=== PATIENT | male | born 1950 | race Two or more races ===

== ENCOUNTER 2016-10-19 19:23 | Emergency (ER) | payer OTHER, MEDICAID ==
[~2016-10-19] VITALS: Ht 175.3 cm; Wt 107.5 kg
[~2016-10-19 19:23] MED LIST: ASPI-498 OR; BUDE160A3 IN; GABA-497 PO; LEVA3NEB9 IN; LOR05T PO; MET10T PO; ONDA8TAB6 PO; TOPI50TA32 PO
[2016-10-19 20:35] LABS: Basophils # (auto) 0.1 uL; Basophils % (auto) 0.6 % (0.0-2.0); CONDITION Y; Eosinophils # (auto) 0.5 uL; Eosinophils % (auto) 5.2 % (0.0-7.0); Hematocrit 51.3 % (41.0-53.0); Hemoglobin 17.5 g/dL (13.5-17.5); Lymphocytes # (auto) 2.9 uL; Lymphocytes % (auto) 29.6 % (10.0-50.0); Mean Corpuscular Hgb Conc. 34.1 g/dL (32.0-36.0); Mean Corpuscular Volume 93.9 fL (80.0-100.0); Mean Platelet Volume 9.9 fL (7.4-10.4); Monocytes # (auto) 0.6 uL; Monocytes % (auto) 6.5 % (0.0-12.0); Neutrophils # (auto) 5.6 uL; Neutrophils % (auto) 58.1 % (37.0-80.0); Platelet Count (auto) 238 10^3/uL (140-450); White Blood Cell 9.6 10^3/uL (4.4-10.8)
[2016-10-19 20:44] LABS: INR 1.04 (0.9-1.15); Partial Thromboplastin Time 26.8 sec (22.64-33.71); Prothrombin Time 11.3 sec (9.37-12.3)
[2016-10-19 20:57] LABS: Anion Gap 8 (5-15); Aspartate Aminotransferase 28 U/L (15-37); BUN/Creatinine Ratio 10.9; Blood Urea Nitrogen 16 mg/dL (7-18); Calcium 8.5 mg/dL (8.5-10.1); Carbon Dioxide 22 mmol/L (21-32); Chloride 111 mmol/L (98-107); GFR African American 62 mL/min; GFR Non-African American 51 mL/min; Glucose 161 mg/dL (74-106); Magnesium 2.2 mg/dL (1.6-2.6); Potassium 3.8 mmol/L (3.5-5.1); Sodium 141 mmol/L (136-145)
[2016-10-19 21:02] LABS: Alkaline Phosphatase 54 U/L (45-117); Bilirubin, Total 0.7 mg/dL (0.2-1.0); Total Protein 7.5 g/dL (6.4-8.2)
[2016-10-19 21:06] LABS: B-Type Natriuretic Peptide 22.24 pg/mL (0-100)
[2016-10-19 21:18] LABS: Urine Bilirubin Negative (Negative); Urine Blood Negative /uL (Negative); Urine Color Yellow (Yellow); Urine Glucose Normal (Normal); Urine Ketone Negative (Negative); Urine Nitrite Negative (Negative); Urine RBC <1 /hpf (0 - 3); Urine Urobilinogen Normal (Negative)
[2016-10-19 21:19] LABS: Temperature: 22.5 C (20.0-25.0)
[2016-10-19] MEDS ORDERED: SODIUM CHLORIDE 0.9% 250 ML IV ONE (23:15)
[2016-10-19] MEDS ORDERED: MECLIZINE HCL 25 MG TAB PO ONE (23:15)
[2016-10-19] MEDS ORDERED: LORazepam 2MG/ML-1ML VIAL IV ONE (23:15)
[2016-10-19] MEDS ORDERED: ONDANSETRON HCL 4 MG/2 ML VIAL IV ONE (23:15)
[2016-10-19 23:46] VITALS: BP 110/70
== END 2016-10-20 00:39 | disposition home or self-care (01) ==
LOC: ER 19:45
DX: R10.9 Unspecified abdominal pain (principal); R11.0 Nausea; R20.0 Anesthesia of skin; J44.9 Chronic obstructive pulmonary disease, unspecified; E11.9 Type 2 diabetes mellitus without complications; E78.5 Hyperlipidemia, unspecified; Z90.49 Acquired absence of other specified parts of digestive tract; Z87.891 Personal history of nicotine dependence; Z98.890 Other specified postprocedural states
CPT/HCPCS: 36415; 70450; 71010; 74176; 80053; 80307; 81001; 83735; 83880; 84484; 85025; 85379; 85610; 85730; 93005; 96361; 96374; 96375; 99285; J2060; J2405; J7050; J8597

== ENCOUNTER 2016-12-04 17:28 | Emergency (ER) | payer OTHER, MEDICAID ==
[~2016-12-04] VITALS: Ht 175.3 cm; Wt 106.6 kg
[2016-12-04 18:19] LABS: Basophils # (auto) 0.1 uL; Basophils % (auto) 1.2 % (0.0-2.0); Eosinophils # (auto) 0.6 uL; Hematocrit 49.9 % (41.0-53.0); Hemoglobin 17.1 g/dL (13.5-17.5); Lymphocytes # (auto) 2.5 uL; Lymphocytes % (auto) 26.4 % (10.0-50.0); Mean Corpuscular Hemoglobin 32.8 pg (28.0-32.0); Mean Corpuscular Hgb Conc. 34.3 g/dL (32.0-36.0); Mean Corpuscular Volume 95.6 fL (80.0-100.0); Mean Platelet Volume 9.2 fL (6.9-10.8); Monocytes # (auto) 0.6 uL; Monocytes % (auto) 6.5 % (0.0-12.0); Neutrophils # (auto) 5.6 uL; Neutrophils % (auto) 59.9 % (37.0-80.0); Nucleated Red Blood Cells % 0.2 %; Platelet Count (auto) 217 10^3/uL (140-450); Red Cell Distribution Width 13.8 % (11.8-14.3); White Blood Cell 9.4 10^3/uL (4.4-10.8)
[2016-12-04 18:56] LABS: Alkaline Phosphatase 71 U/L (45-117); Anion Gap 7 (5-15); Aspartate Aminotransferase 39 U/L (15-37); Bilirubin, Total 0.7 mg/dL (0.2-1.0); Blood Urea Nitrogen 16 mg/dL (7-18); Calcium 8.2 mg/dL (8.5-10.1); Carbon Dioxide 26 mmol/L (21-32); Chloride 107 mmol/L (98-107); GFR African American 63 mL/min; GFR Non-African American 52 mL/min; Glucose 262 mg/dL (74-106); Magnesium 2.4 mg/dL (1.6-2.6); Potassium 3.7 mmol/L (3.5-5.1); Sodium 140 mmol/L (136-145); Total Protein 7.3 g/dL (6.4-8.2)
[2016-12-05] MEDS ORDERED: ONDANSETRON HCL 4 MG/2 ML VIAL IV ONE (02:15)
[2016-12-05] MEDS ORDERED: MORPHINE SULF INJ 2 MG/ML SYRINGE 1ML IV ONE (02:15)
[2016-12-05 02:35] VITALS: BP 142/73
[2016-12-05] MEDS ORDERED: LORazepam 0.5 MG TAB PO ONE (03:30)
[2016-12-05] MEDS ORDERED: HYDROmorphone HCL 2 MG/ML VL IV ONE (03:30)
== END 2016-12-05 05:27 | disposition home or self-care (01) ==
LOC: ER 17:30
DX: M54.42 Lumbago with sciatica, left side (principal); R07.9 Chest pain, unspecified; F41.9 Anxiety disorder, unspecified; E11.9 Type 2 diabetes mellitus without complications; J44.9 Chronic obstructive pulmonary disease, unspecified; E78.5 Hyperlipidemia, unspecified; Z87.891 Personal history of nicotine dependence; Z79.82 Long term (current) use of aspirin; Z88.6 Allergy status to analgesic agent
CPT/HCPCS: 36415; 71020; 72131; 73562; 80053; 82962; 83735; 84484; 85025; 93005; 96374; 96375; 99285; J1170; J2270; J2405

== ENCOUNTER 2018-08-20 02:13 | Emergency (ER) | payer OTHER, MEDICAID ==
[~2018-08-20] VITALS: Ht 170.2 cm; Wt 108.9 kg
[~2018-08-20 02:13] MED LIST changes: +ALPR0.5T PO; +ATOR80TA PO; +FENO1TAB42 PO; +FLUO-125 PO; -GABA-497 PO; +GABA300C10 PO; -LOR05T PO; +LORA-654 PO; +MAGN400T5 PO; +MECL-87 PO; +NAP500T PO; +ONDA-143 PO; -ONDA8TAB6 PO
[2018-08-20 02:54] LABS: Basophils # (auto) 0.1 uL; Basophils % (auto) 1.2 % (0.0-2.0); Eosinophils # (auto) 0.4 uL; Hematocrit 48.4 % (41.0-53.0); Hemoglobin 16.6 g/dL (13.5-17.5); Lymphocytes % (auto) 29.1 % (10.0-50.0); Mean Corpuscular Hemoglobin 32.9 pg (28.0-32.0); Mean Corpuscular Hgb Conc. 34.4 g/dL (32.0-36.0); Mean Corpuscular Volume 95.6 fL (80.0-100.0); Monocytes # (auto) 0.7 uL; Monocytes % (auto) 7.1 % (0.0-12.0); Neutrophils # (auto) 5.9 uL; Neutrophils % (auto) 58.6 % (37.0-80.0); Platelet Count (auto) 219 10^3/uL (140-450); Red Blood Cells 5.06 10^6/uL (4.5-5.90); Red Cell Distribution Width 13.9 % (11.8-14.3); White Blood Cell 10.2 10^3/uL (4.4-10.8)
[2018-08-20 03:15] LABS: Alanine Aminotransferase 56 U/L (16-61); Albumin 3.9 g/dL (3.4-5.0); Anion Gap 9 (5-15); Aspartate Aminotransferase 40 U/L (15-37); BUN/Creatinine Ratio 10.4; Blood Urea Nitrogen 17 mg/dL (7-18); Calcium 8.5 mg/dL (8.5-10.1); Carbon Dioxide 21 mmol/L (21-32); Chloride 112 mmol/L (98-107); GFR African American 54 mL/min; GFR Non-African American 45 mL/min; Glucose 138 mg/dL (74-106); Magnesium 2.2 mg/dL (1.6-2.6); Potassium 3.8 mmol/L (3.5-5.1); Sodium 142 mmol/L (136-145)
[2018-08-20 03:20] LABS: Alkaline Phosphatase 70 U/L (45-117); Bilirubin, Total 0.7 mg/dL (0.2-1.0); Total Protein 7.6 g/dL (6.4-8.2)
[2018-08-20] MEDS ORDERED: ONDANSETRON HCL 4 MG/2 ML VIAL IV ONE ×2 (05:00→11:00)
[2018-08-20] MEDS ORDERED: MORPHINE SULFATE 4 MG/ML SYR/VIAL IV ONE (05:00)
[2018-08-20] MEDS ORDERED: SODIUM CHLORIDE 0.9% 1,000 ML IV ONE (07:27)
[2018-08-20 08:39] LABS: INR 1.05 (0.9-1.15)
[2018-08-20 09:35] LABS: Urine Bacteria NONE SEEN /hpf (None Seen); Urine Blood Negative /uL (Negative); Urine Mucus FEW (None Seen); Urine Specific Gravity 1.028 (1.001-1.035); Urine WBC 1 /hpf (0 - 3)
[2018-08-20] MEDS ORDERED: MORPHINE SULF INJ 2 MG/ML SYRINGE 1ML IV ONE (11:00)
[2018-08-20 14:03] VITALS: BP 129/73
== END 2018-08-20 14:05 | disposition home or self-care (01) ==
LOC: EDUNIT# 02:13 → ER 02:13 → EDBD 02:13 → ER 14:05
DX: R07.9 Chest pain, unspecified (principal); I20.9 Angina pectoris, unspecified; E66.9 Obesity, unspecified; E11.9 Type 2 diabetes mellitus without complications; I11.0 Hypertensive heart disease with heart failure; I50.9 Heart failure, unspecified; J44.9 Chronic obstructive pulmonary disease, unspecified; E78.5 Hyperlipidemia, unspecified; I25.2 Old myocardial infarction; Z90.49 Acquired absence of other specified parts of digestive tract; Z68.37 Body mass index [BMI] 37.0-37.9, adult; Z87.891 Personal history of nicotine dependence; F12.10 Cannabis abuse, uncomplicated
CPT/HCPCS: 36415; 71045; 80053; 81001; 83735; 83880; 84443; 84484; 85025; 85379; 85610; 85730; 93005; 94761; 96374; 96375; 96376; 99284; J2270; J2405; J7030

== ENCOUNTER 2019-10-25 03:25 | Inpatient (IN) | payer OTHER, MEDICAID ==
[~2019-10-25] VITALS: Ht 172.7 cm; Wt 99.8 kg
[~2019-10-25 03:25] MED LIST changes: +FENO145T27 PO; -FENO1TAB42 PO; -LORA-654 PO; +LORA0.5T20 PO; +MAGN400T40 PO; -MAGN400T5 PO; -MECL-87 PO; +MECL25TA18 PO
[2019-10-25] MEDS ORDERED: ONDANSETRON HCL 4 MG/2 ML VIAL IV ONE (04:15)
[2019-10-25] MEDS: MORPHINE SULFATE 4 MG/ML SYR/VIAL IV PRN ×2 (04:53→11:11)
[2019-10-25 05:22] LABS: Basophils # (auto) 0.1 10 ^3/uL (0-0.2); Basophils % (auto) 1.1 % (0.0-2.0); Eosinophils # (auto) 0.2 10 ^3/uL (0-0.8); Eosinophils % (auto) 3.2 % (0.0-7.0); Hematocrit 45.7 % (41.0-53.0); Hemoglobin 15.4 g/dL (13.5-17.5); Lymphocytes # (auto) 1.5 10 ^3/uL (0.4-5.4); Lymphocytes % (auto) 21.6 % (10.0-50.0); Mean Corpuscular Hemoglobin 32.3 pg (28.0-32.0); Mean Corpuscular Hgb Conc. 33.6 g/dL (32.0-36.0); Mean Corpuscular Volume 96.3 fL (80.0-100.0); Monocytes # (auto) 0.4 10 ^3/uL (0-1.3); Monocytes % (auto) 6.5 % (0.0-12.0); Neutrophils # (auto) 4.7 10 ^3/uL (1.6-8.6); Neutrophils % (auto) 67.6 % (37.0-80.0); Nucleated Red Blood Cells % 0.1 %; Platelet Count (auto) 157 10^3/uL (140-450); Red Blood Cells 4.75 10^6/uL (4.5-5.90); Red Cell Distribution Width 14.7 % (11.8-14.3); White Blood Cell 6.9 10^3/uL (4.4-10.8)
[2019-10-25 05:40] LABS: Albumin 3.8 g/dL (3.4-5.0); Anion Gap 4 (5-15); Blood Urea Nitrogen 11 mg/dL (7-18); Calcium 8.6 mg/dL (8.5-10.1); Carbon Dioxide 23 mmol/L (21-32); Chloride 116 mmol/L (98-107); Glucose 127 mg/dL (74-106); Potassium 3.9 mmol/L (3.5-5.1); Sodium 143 mmol/L (136-145)
[2019-10-25 05:47] LABS: Alanine Aminotransferase 38 U/L (16-61); Alkaline Phosphatase 52 U/L (45-117); Aspartate Aminotransferase 31 U/L (15-37); BUN/Creatinine Ratio 8.2; Bilirubin, Total 1.1 mg/dL (0.2-1.0); GFR African American 68 mL/min; GFR Non-African American 57 mL/min; Total Protein 6.9 g/dL (6.4-8.2)
[2019-10-25 05:56] LABS: INR 1.09 (0.9-1.15); Partial Thromboplastin Time 27.6 sec (23.0-31.2)
[2019-10-25] MEDS ORDERED: ALPRAZolam 0.25 MG TAB PO ONE (08:45)
[2019-10-25] MEDS ORDERED: NITROGLYCERIN 0.4 MG SL TAB SL ONE (08:45)
[2019-10-25] MEDS ORDERED: ASPirin 325 MG TAB PO ONE (10:30)
[2019-10-25] MEDS ORDERED: SODIUM CHLORIDE 0.9% 1,000 ML IV ONE (10:30)
[2019-10-25] MEDS ORDERED: NITROGLYCERIN 0.4 MG SL TAB SL PRN (10:45)
[2019-10-25] MEDS ORDERED: ASPirin 81 mg TAB PO ONE (10:45)
[2019-10-25] MEDS ORDERED: MORPHINE SULF INJ 2 MG/ML SYRINGE 1ML IV PRN (10:45)
[2019-10-25] MEDS ORDERED: LIDOCAINE 2%HCL (LOCAL ANESTH.) INJ 20ML MDV ONE (14:52)
[2019-10-25] MEDS ORDERED: IODIXANOL 320MG/ML 100ML BTL IV ONE (14:52)
[2019-10-25] MEDS ORDERED: CLOP75TA41 PO (15:02)
[2019-10-25] MEDS ORDERED: TOPI100T68 PO (15:02)
[2019-10-25] MEDS ORDERED: FLUO-125 PO (15:02)
[2019-10-25] MEDS ORDERED: FENO160T8 PO (15:02)
[2019-10-25] MEDS ORDERED: METF-370 PO (15:02)
[2019-10-25] MEDS ORDERED: VERAPAMIL 2.5MG/ML INJ 2ML VIAL IV ONE (15:14)
[2019-10-25] MEDS ORDERED: ANGIOMAX 250 MG VIAL IV ONE (15:14)
[2019-10-25] MEDS ORDERED: fentaNYL CITRATE 100 MCG/2 ML VL ONE (15:15)
[2019-10-25] MEDS ORDERED: MIDAZOLAM HCL 1MG/1ML-2 ML VIAL ONE (15:15)
[2019-10-25] MEDS ORDERED: HEPARIN SODIUM (PORCINE) 5000 UNITS/ML 1ML VIAL ONE (16:20)
[2019-10-25 19:03] VITALS: BP 119/63
--- NOTE | 2019-10-25 21:05 | NUR ---
Patient Discharged Dis[facility] the [id number]. Prepared the patient for discharge, printed all discharge paperwork, and then reviewed it with the patient. Signature form was missing so had the patient sign the last page of the summary. He denied any questions. The patient was reluctant to discharge, stating he wasn't sure he was ready. i explained that all test on his heart were negative to include the Cardiac Cath performed earlier today. The patient requested medications for anxiety prior to being discharged. I explained that he would need to get a prescription from his primary care provider as he was already discharged. He also requested medications for pain. I again explained since he was discharged most of his medications were discontinued. Escorted the patient to the main entrance via wheel chair where his daughter Lindy picked him up.
[2019-10-25] MEDS ORDERED: SODIUM CHLOR 0.9% PF (SALINE LOCK) 10ML VIAL/SYR IV SCH (22:00)
[2019-10-26] MEDS ORDERED: ASPirin 81 mg TAB PO SCH (10:00)
== END 2019-10-25 20:45 | disposition home or self-care (01) | DRG 287 ==
LOC: ER 03:25 → EDBD 03:25 → TELE 03:26 → TELE-WESTW 14:40
PROVIDERS: ADMIT Internal Medicine; ATTEND Internal Medicine
PROC: 4A023N7 Measurement of Cardiac Sampling and Pressure, Left Heart, Percutaneous Approach (ICD-10-PCS; principal; 2019-10-25)
PROC: B2111ZZ Fluoroscopy of Multiple Coronary Arteries using Low Osmolar Contrast (ICD-10-PCS; 2019-10-25)
PROC: 4A033BC Measurement of Arterial Pressure, Coronary, Percutaneous Approach (ICD-10-PCS; 2019-10-25)
DX: R07.9 Chest pain, unspecified (principal); I25.110 Atherosclerotic heart disease of native coronary artery with unstable angina pectoris; E11.9 Type 2 diabetes mellitus without complications; E66.9 Obesity, unspecified; E78.5 Hyperlipidemia, unspecified; I11.0 Hypertensive heart disease with heart failure; I25.2 Old myocardial infarction; I50.9 Heart failure, unspecified; J44.9 Chronic obstructive pulmonary disease, unspecified; Z83.3 Family history of diabetes mellitus; Z87.891 Personal history of nicotine dependence; Z79.4 Long term (current) use of insulin
CPT/HCPCS: 36415; 71045; 80053; 83880; 84484; 85025; 85379; 85610; 85730; 93005; 93306; 93458; 96361; 96374; 96375; 99152; G0378; J2250; J2405; Q9967

== ENCOUNTER → 2020-04-21 | Outpatient (CLI) | payer OTHER ==
[~2020-04-21] MED LIST changes: +CLOP75TA70 PO; -FENO145T27 PO; +FENO160T8 PO; +METF-370 PO; +TOPI100T68 PO; -TOPI50TA32 PO
[2020-04-21 08:24] LABS: Basophils # (auto) 0.1 10 ^3/uL (0-0.2); Basophils % (auto) 1.3 % (0.0-2.0); Eosinophils # (auto) 0.2 10 ^3/uL (0-0.8); Eosinophils % (auto) 4.6 % (0.0-7.0); Hemoglobin 15.7 g/dL (13.5-17.5); Lymphocytes # (auto) 1.3 10 ^3/uL (0.4-5.4); Lymphocytes % (auto) 23.9 % (10.0-50.0); Mean Corpuscular Hemoglobin 32.4 pg (28.0-32.0); Mean Corpuscular Hgb Conc. 34.2 g/dL (32.0-36.0); Mean Corpuscular Volume 94.9 fL (80.0-100.0); Monocytes # (auto) 0.4 10 ^3/uL (0-1.3); Monocytes % (auto) 7.7 % (0.0-12.0); Neutrophils # (auto) 3.4 10 ^3/uL (1.6-8.6); Neutrophils % (auto) 62.5 % (37.0-80.0); Platelet Count (auto) 146 10^3/uL (140-450); Red Blood Cells 4.85 10^6/uL (4.5-5.90); White Blood Cell 5.4 10^3/uL (4.4-10.8)
[2020-04-21 09:01] LABS: Albumin 3.5 g/dL (3.4-5.0); Calcium 9.8 mg/dL (8.5-10.1); Potassium 4.5 mmol/L (3.5-5.1)
[2020-04-21 09:07] LABS: BUN/Creatinine Ratio 7.7; Bilirubin, Total 1.4 mg/dL (0.2-1.0); Total Protein 7.6 g/dL (6.4-8.2)
[2020-04-21 09:13] LABS: Prostate Specific Antigen 0.3 ng/mL (0.0-4.0)
[2020-04-21 09:37] LABS: Hepatitis B Surface Antibody Negative
[2020-04-21 10:03] LABS: Hepatitis A Total Antibody Positive
[2020-04-21 10:35] LABS: Hepatitis C Antibody Negative (Negative)
[2020-04-21 10:36] LABS: Hepatitis B Core Total AB Negative; Hepatitis B Surface Antigen Negative (Negative)
[2020-04-24 14:03] LABS: Urine Bacteria NONE SEEN /hpf (None Seen); Urine Blood Negative /uL (Negative); Urine Specific Gravity 1.031 (1.001-1.035); Urine WBC 2 /hpf (0 - 3)
== END | disposition home or self-care (01) ==
LOC: LAB 08:06
PROVIDERS: ATTEND Internal Medicine
DX: I12.9 Hypertensive chronic kidney disease with stage 1 through stage 4 chronic kidney disease, or unspecified chronic kidney disease (principal); E11.22 Type 2 diabetes mellitus with diabetic chronic kidney disease; N18.2 Chronic kidney disease, stage 2 (mild)
CPT/HCPCS: 36415; 80053; 80061; 81001; 82043; 82274; 82306; 82607; 83036; 84153; 84443; 85025; 86704; 86706; 86708; 86803; 87340

== ENCOUNTER → 2020-05-06 | Outpatient (CLI) | payer OTHER ==
[2020-05-06 09:04] LABS: BUN/Creatinine Ratio 12.2; Calcium 9.5 mg/dL (8.5-10.1); Potassium 4.1 mmol/L (3.5-5.1)
== END | disposition home or self-care (01) ==
LOC: LAB 08:28
PROVIDERS: ATTEND Internal Medicine
DX: E11.22 Type 2 diabetes mellitus with diabetic chronic kidney disease (principal); N18.2 Chronic kidney disease, stage 2 (mild)
CPT/HCPCS: 36415; 80048; 82043

== ENCOUNTER → 2020-05-16 | Outpatient (CLI) | payer OTHER | END | disposition home or self-care (01) | LOC: XYW 08:07 | PROVIDERS: ATTEND Internal Medicine | DX: I08.2 Rheumatic disorders of both aortic and tricuspid valves (principal); R00.1 Bradycardia, unspecified; I70.0 Atherosclerosis of aorta | CPT/HCPCS: 93306 ==

== ENCOUNTER → 2020-05-26 | Outpatient (CLI) | payer OTHER, MEDICAID | END | disposition home or self-care (01) | LOC: LAB 07:37 | PROVIDERS: ATTEND Internal Medicine | DX: Z01.812 Encounter for preprocedural laboratory examination (principal) | CPT/HCPCS: 36415; 82565; 84520 ==

== ENCOUNTER → 2020-10-08 | Outpatient (CLI) | payer OTHER, MEDICAID ==
[~2020-10-08] VITALS: Ht 172.7 cm; Wt 85.3 kg
[~2020-10-08] MED LIST changes: +ADENOSINE 72 MG in GIVE UN-DILUTED 0 ML IV ONE
== END | disposition home or self-care (01) ==
LOC: XY 08:53
PROVIDERS: ATTEND Internal Medicine
DX: R07.89 Other chest pain (principal); I50.22 Chronic systolic (congestive) heart failure; I25.5 Ischemic cardiomyopathy; E11.65 Type 2 diabetes mellitus with hyperglycemia; Z72.0 Tobacco use
CPT/HCPCS: 78452; 93017; A9500; J0153

== ENCOUNTER 2020-11-26 07:01 | Inpatient (IN) | payer OTHER, MEDICAID ==
[2020-11-24 11:49] LABS: Basophils # (auto) 0.1 10 ^3/uL (0-0.2); Eosinophils # (auto) 0.2 10 ^3/uL (0-0.8); Eosinophils % (auto) 2.5 % (0.0-7.0); Hematocrit 48.7 % (41.0-53.0); Hemoglobin 15.7 g/dL (13.5-17.5); Lymphocytes # (auto) 2.6 10 ^3/uL (0.4-5.4); Lymphocytes % (auto) 29.7 % (10.0-50.0); Mean Corpuscular Hemoglobin 31.6 pg (28.0-32.0); Mean Corpuscular Hgb Conc. 32.3 g/dL (32.0-36.0); Mean Corpuscular Volume 97.7 fL (80.0-100.0); Monocytes # (auto) 0.7 10 ^3/uL (0-1.3); Monocytes % (auto) 8.1 % (0.0-12.0); Neutrophils # (auto) 5.1 10 ^3/uL (1.6-8.6); Neutrophils % (auto) 58.7 % (37.0-80.0); Nucleated Red Blood Cells % 0.1 %; Red Blood Cells 4.99 10^6/uL (4.5-5.90); Red Cell Distribution Width 14.8 % (11.8-14.3); White Blood Cell 8.6 10^3/uL (4.4-10.8)
[2020-11-24 12:01] LABS: Urine Bacteria NONE SEEN /hpf (None Seen); Urine Blood Negative /uL (Negative); Urine Hyaline Cast FEW /lpf (0 - 2); Urine Specific Gravity 1.025 (1.001-1.035); Urine WBC 3 /hpf (0 - 3)
[2020-11-24 12:12] LABS: Potassium 3.9 mmol/L (3.5-5.1)
[2020-11-24 12:24] LABS: Albumin 3.9 g/dL (3.4-5.0); BUN/Creatinine Ratio 10.7; Bilirubin, Total 1.4 mg/dL (0.2-1.0); Calcium 9.6 mg/dL (8.5-10.1); Total Protein 7.6 g/dL (6.4-8.2)
[~2020-11-26] VITALS: Ht 172.7 cm; Wt 82.1 kg
[~2020-11-26 07:01] MED LIST changes: -ADENOSINE 72 MG in GIVE UN-DILUTED 0 ML IV ONE; -BUDE160A3 IN; +CHOL20007 PO; +CICL8SOL3 EX; +ECON1CRE6 EX; +FLUT1AER7 IN; +FLUT250M2 IN; +HYDR-3682 PO; +ISOS10TA45 PO; +LEVAAER IN; -LORA0.5T20 PO; -MECL25TA18 PO; -MET10T PO; -ONDA-143 PO
[2020-11-26] MEDS ORDERED: ceFAZolin 1GM/50ML 100 ML IV ONE (08:54)
[2020-11-26] MEDS ORDERED: SUCCINYLCHOLINE CHLORIDE 20 MG/ML 10ML VIAL IV ONE (09:13)
[2020-11-26] MEDS ORDERED: MIDAZOLAM HCL 2MG/2ML 2ml VIAL (1mg/ml) ONE (09:17)
[2020-11-26] MEDS ORDERED: fentaNYL CITRATE 5 ML ONE (09:17)
[2020-11-26] MEDS ORDERED: PROPOFOL 10 MG/ML 20 ML IV ONE (09:18)
[2020-11-26] MEDS ORDERED: ONDANSETRON HCL 4 MG/2 ML VIAL ONE (09:18)
[2020-11-26] MEDS ORDERED: ceFAZolin 1GM VL ONE (10:07)
[2020-11-26] MEDS ORDERED: ONDANSETRON HCL 4 MG/2 ML VIAL IV PRN ×2 (11:00→11:30)
[2020-11-26] MEDS ORDERED: GLYCOPYRROLATE 0.2 MG/ML 1ML VIAL ONE (11:14)
[2020-11-26] MEDS ORDERED: NEOSTIGMINE 1 MG/ML INJ (10mg/10ML VIAL) ONE (11:14)
[2020-11-26] MEDS: HYDROmorphone HCL 2 MG/ML VL IV PRN ×4 (11:53→12:27)
[2020-11-26] MEDS ORDERED: MORPHINE SULFATE INJECTION 2 MG/ML SYRG IV PRN (12:00)
[2020-11-26] MEDS ORDERED: DEXTROSE (50%) 50ML SYRG IV PRN (12:00)
[2020-11-26] MEDS ORDERED: NITROGLYCERIN 0.4 MG SL TAB SL PRN (12:00)
[2020-11-26] MEDS ORDERED: ALBUTEROL SULF 2.5 MG/0.5ML(0.5%) NEB SOLN NEB PRN (12:00)
[2020-11-26] MEDS ORDERED: IPRATROPIUM BROM 0.5 MG/2.5ML INH SOL NEB PRN (12:00)
[2020-11-26] MEDS: D5W/SOD CHL 0.45%/KCL 40MEQ 1,000 ML IV SCH ×2 (12:35→17:54)
[2020-11-26] MEDS: KETOROLAC TROMETH 30 MG/ML 1ML VIAL IV PRN (13:07)
[2020-11-26] MEDS ORDERED: ceFAZolin 2 GM in D5W 5% 100 ML IV SCH (14:00)
[2020-11-26] MEDS: MORPHINE SULFATE INJECTION 2 MG/ML SYRG IV PRN ×2 (15:19→20:05)
[2020-11-26 17:00] VITALS: BP 94/58
[2020-11-26] MEDS: ACCU-CHEK COMFORT CURVE STRIP VI SCH ×2 (17:00→21:11)
[2020-11-26] MEDS: InsuLIN REG 1unit/0.01ml Soln (100units/ml) SC SCH ×2 (17:00→21:11)
[2020-11-26] MEDS: ceFAZolin 2 GM in D5W 5% 100 ML IV SCH (17:53)
[2020-11-26 18:35] VITALS: BP 94/58
[2020-11-26] MEDS: BUDESONIDE (INHALATION) 0.5 MG/2 ML NEB NEB SCH (18:35)
[2020-11-26 22:00] VITALS: BP 91/55
[2020-11-27] MEDS: ceFAZolin 2 GM in D5W 5% 100 ML IV SCH ×4 (00:18→23:14)
[2020-11-27] MEDS: KETOROLAC TROMETH 30 MG/ML 1ML VIAL IV PRN ×4 (00:32→20:30)
[2020-11-27] MEDS: D5W/SOD CHL 0.45%/KCL 40MEQ 1,000 ML IV SCH ×2 (02:35→13:00)
[2020-11-27 05:00] VITALS: BP 94/56
[2020-11-27] MEDS ORDERED: INFLUENZA QUAD 2020-2021 0.5 ML SYRG IM ONE (05:15)
[2020-11-27] MEDS: BUDESONIDE (INHALATION) 0.5 MG/2 ML NEB NEB SCH ×3 (06:14→22:00)
[2020-11-27] MEDS: ACCU-CHEK COMFORT CURVE STRIP VI SCH ×4 (06:23→20:30)
[2020-11-27] MEDS: InsuLIN REG 1unit/0.01ml Soln (100units/ml) SC SCH ×4 (06:24→20:33)
[2020-11-27] MEDS: LORazepam 2MG/ML-1ML VIAL IV PRN ×2 (07:45→20:30)
[2020-11-27 09:03] VITALS: BP 110/65
[2020-11-27] MEDS: PANTOPRAZOLE 40 MG/10 ML VIAL INJ IV SCH (09:56)
[2020-11-27 10:35] LABS: Basophils # (auto) 0 10 ^3/uL (0-0.2); Basophils % (auto) 0.6 % (0.0-2.0); Eosinophils # (auto) 0.2 10 ^3/uL (0-0.8); Eosinophils % (auto) 2.1 % (0.0-7.0); Hematocrit 35.7 % (41.0-53.0); Lymphocytes # (auto) 1.3 10 ^3/uL (0.4-5.4); Lymphocytes % (auto) 16.8 % (10.0-50.0); Mean Corpuscular Hemoglobin 33.1 pg (28.0-32.0); Mean Corpuscular Hgb Conc. 33.6 g/dL (32.0-36.0); Mean Corpuscular Volume 98.4 fL (80.0-100.0); Monocytes # (auto) 0.7 10 ^3/uL (0-1.3); Monocytes % (auto) 9.6 % (0.0-12.0); Neutrophils # (auto) 5.4 10 ^3/uL (1.6-8.6); Neutrophils % (auto) 70.9 % (37.0-80.0); Nucleated Red Blood Cells % 0.1 %; Red Blood Cells 3.63 10^6/uL (4.5-5.90); Red Cell Distribution Width 14.7 % (11.8-14.3); White Blood Cell 7.7 10^3/uL (4.4-10.8)
[2020-11-27 10:45] LABS: Albumin 2.8 g/dL (3.4-5.0); Calcium 8.1 mg/dL (8.5-10.1); Magnesium 2.3 mg/dL (1.6-2.6); Potassium 4.2 mmol/L (3.5-5.1)
[2020-11-27 10:49] LABS: BUN/Creatinine Ratio 7.9; Bilirubin, Total 1.1 mg/dL (0.2-1.0); Total Protein 5.4 g/dL (6.4-8.2)
[2020-11-27 13:00] VITALS: BP 94/49
[2020-11-27 17:00] VITALS: BP 93/46
[2020-11-27 21:44] VITALS: BP 103/53
[2020-11-28] MEDS: D5W/SOD CHL 0.45%/KCL 40MEQ 1,000 ML IV SCH ×4 (04:21→21:24)
[2020-11-28] MEDS: KETOROLAC TROMETH 30 MG/ML 1ML VIAL IV PRN ×3 (04:39→21:23)
[2020-11-28 05:43] VITALS: BP 108/60
[2020-11-28] MEDS: InsuLIN REG 1unit/0.01ml Soln (100units/ml) SC SCH ×4 (06:07→21:27)
[2020-11-28] MEDS: ACCU-CHEK COMFORT CURVE STRIP VI SCH ×4 (06:07→21:27)
[2020-11-28] MEDS: LORazepam 2MG/ML-1ML VIAL IV PRN ×2 (07:15→17:30)
[2020-11-28] MEDS: ceFAZolin 2 GM in D5W 5% 100 ML IV SCH ×3 (08:30→23:43)
[2020-11-28 08:35] VITALS: BP 107/61
[2020-11-28] MEDS: BUDESONIDE (INHALATION) 0.5 MG/2 ML NEB NEB SCH ×2 (10:00→19:16)
[2020-11-28] MEDS: PANTOPRAZOLE 40 MG/10 ML VIAL INJ IV SCH (10:21)
[2020-11-28 13:00] VITALS: BP 126/63
[2020-11-28 16:40] VITALS: BP 101/57
[2020-11-28 22:00] VITALS: BP 109/62
[2020-11-29 05:00] VITALS: BP 107/60
[2020-11-29 05:22] LABS: Basophils # (auto) 0 10 ^3/uL (0-0.2); Eosinophils # (auto) 0.3 10 ^3/uL (0-0.8); Hematocrit 30.6 % (41.0-53.0); Hemoglobin 10.3 g/dL (13.5-17.5); Lymphocytes % (auto) 19.7 % (10.0-50.0); Mean Corpuscular Hemoglobin 32.5 pg (28.0-32.0); Mean Corpuscular Hgb Conc. 33.6 g/dL (32.0-36.0); Mean Corpuscular Volume 96.7 fL (80.0-100.0); Monocytes # (auto) 0.4 10 ^3/uL (0-1.3); Monocytes % (auto) 7.8 % (0.0-12.0); Neutrophils # (auto) 3.4 10 ^3/uL (1.6-8.6); Neutrophils % (auto) 66.5 % (37.0-80.0); Nucleated Red Blood Cells % 0.1 %; Red Blood Cells 3.17 10^6/uL (4.5-5.90)
[2020-11-29 05:37] LABS: Calcium 8.3 mg/dL (8.5-10.1); Potassium 4.7 mmol/L (3.5-5.1)
[2020-11-29 05:39] LABS: BUN/Creatinine Ratio 7.6
[2020-11-29] MEDS: KETOROLAC TROMETH 30 MG/ML 1ML VIAL IV PRN ×2 (05:47→13:33)
[2020-11-29] MEDS: LORazepam 2MG/ML-1ML VIAL IV PRN (05:47)
[2020-11-29] MEDS: InsuLIN REG 1unit/0.01ml Soln (100units/ml) SC SCH ×2 (05:58→11:30)
[2020-11-29] MEDS: ACCU-CHEK COMFORT CURVE STRIP VI SCH ×2 (05:58→11:37)
[2020-11-29] MEDS: D5W/SOD CHL 0.45%/KCL 40MEQ 1,000 ML IV SCH (05:59)
[2020-11-29] MEDS: BUDESONIDE (INHALATION) 0.5 MG/2 ML NEB NEB SCH ×2 (06:38→06:42)
[2020-11-29] MEDS: ceFAZolin 2 GM in D5W 5% 100 ML IV SCH (08:02)
[2020-11-29] MEDS: PANTOPRAZOLE 40 MG/10 ML VIAL INJ IV SCH (08:03)
[2020-11-29 08:57] VITALS: BP 102/60
[2020-11-29 12:38] VITALS: BP 108/61
== END 2020-11-29 13:56 | disposition home or self-care (01) | DRG 355 ==
LOC: SUR 07:01 → TELE 11:58 → TELE-CENTR 14:11 → CENTRAL 11-27 12:00
PROVIDERS: ADMIT Nurse Practitioner Acute Care; ATTEND Internal Medicine
PROC: 0WUF0JZ Supplement Abdominal Wall with Synthetic Substitute, Open Approach (ICD-10-PCS; principal; 2020-11-26 09:14)
DX: K43.2 Incisional hernia without obstruction or gangrene (principal); E11.9 Type 2 diabetes mellitus without complications; J44.9 Chronic obstructive pulmonary disease, unspecified; I25.10 Atherosclerotic heart disease of native coronary artery without angina pectoris; I10 Essential (primary) hypertension; K66.0 Peritoneal adhesions (postprocedural) (postinfection); E78.5 Hyperlipidemia, unspecified; Z20.822 Contact with and (suspected) exposure to COVID-19; Z79.02 Long term (current) use of antithrombotics/antiplatelets; Z79.84 Long term (current) use of oral hypoglycemic drugs; Z79.899 Other long term (current) drug therapy; Z83.3 Family history of diabetes mellitus; Z90.49 Acquired absence of other specified parts of digestive tract; Z88.1 Allergy status to other antibiotic agents; Z88.5 Allergy status to narcotic agent
CPT/HCPCS: 36415; 80048; 80053; 81001; 82962; 83036; 83735; 85025; 86850; 86900; 86901; 88302; 94640; C9113; G0378; J0330; J0690; J1815; J1885; J2250; J2405; J2704; J7060

== ENCOUNTER → 2021-03-19 | Outpatient (CLI) | payer OTHER | END | disposition home or self-care (01) | LOC: XYW 12:34 | PROVIDERS: ATTEND Internal Medicine | DX: I07.1 Rheumatic tricuspid insufficiency (principal); I35.0 Nonrheumatic aortic (valve) stenosis; I05.0 Rheumatic mitral stenosis | CPT/HCPCS: 93306 ==

== ENCOUNTER → 2021-05-01 | Outpatient (CLI) | payer OTHER ==
[2021-05-01 10:52] LABS: Albumin 3.4 g/dL (3.4-5.0); Calcium 9.2 mg/dL (8.5-10.1); Potassium 3.7 mmol/L (3.5-5.1)
[2021-05-01 10:57] LABS: BUN/Creatinine Ratio 15.4
[2021-05-01 11:04] LABS: Basophils # (auto) 0.1 10 ^3/uL (0-0.2); Eosinophils # (auto) 0.2 10 ^3/uL (0-0.8); Eosinophils % (auto) 2.5 % (0.0-7.0); Hematocrit 43.4 % (41.0-53.0); Hemoglobin 14.8 g/dL (13.5-17.5); Lymphocytes % (auto) 28.6 % (10.0-50.0); Mean Corpuscular Hemoglobin 32.5 pg (28.0-32.0); Mean Corpuscular Hgb Conc. 34.1 g/dL (32.0-36.0); Mean Corpuscular Volume 95.1 fL (80.0-100.0); Monocytes # (auto) 0.5 10 ^3/uL (0-1.3); Monocytes % (auto) 7.6 % (0.0-12.0); Neutrophils # (auto) 4.2 10 ^3/uL (1.6-8.6); Neutrophils % (auto) 60.3 % (37.0-80.0); Red Blood Cells 4.56 10^6/uL (4.5-5.90); Red Cell Distribution Width 17.2 % (11.8-14.3); White Blood Cell 6.9 10^3/uL (4.4-10.8)
== END | disposition home or self-care (01) ==
LOC: LAB 08:15
PROVIDERS: ATTEND Student in an Organized Health Care Education/Training Program
DX: E11.42 Type 2 diabetes mellitus with diabetic polyneuropathy (principal); I10 Essential (primary) hypertension
CPT/HCPCS: 36415; 80053; 80061; 82306; 83036; 85025

== ENCOUNTER → 2021-11-12 | Outpatient (CLI) | payer OTHER, MEDICAID ==
[2021-11-12 09:00] LABS: Basophils # (auto) 0.1 10 ^3/uL (0-0.2); Basophils % (auto) 1.2 % (0.0-2.0); Eosinophils # (auto) 0.1 10 ^3/uL (0-0.8); Eosinophils % (auto) 3.3 % (0.0-7.0); Hematocrit 39.3 % (41.0-53.0); Lymphocytes # (auto) 0.9 10 ^3/uL (0.4-5.4); Lymphocytes % (auto) 20.2 % (10.0-50.0); Mean Corpuscular Hemoglobin 32.3 pg (28.0-32.0); Mean Corpuscular Volume 97.7 fL (80.0-100.0); Monocytes # (auto) 0.3 10 ^3/uL (0-1.3); Monocytes % (auto) 7.6 % (0.0-12.0); Neutrophils # (auto) 3.1 10 ^3/uL (1.6-8.6); Neutrophils % (auto) 67.7 % (37.0-80.0); Nucleated Red Blood Cells % 0.1 %; Red Blood Cells 4.02 10^6/uL (4.5-5.90); Red Cell Distribution Width 17.5 % (11.8-14.3); White Blood Cell 4.5 10^3/uL (4.4-10.8)
[2021-11-12 09:42] LABS: Albumin 2.8 g/dL (3.4-5.0); Potassium 3.8 mmol/L (3.5-5.1)
[2021-11-12 09:50] LABS: BUN/Creatinine Ratio 11.9; Bilirubin, Total 4.6 mg/dL (0.2-1.0); Calcium 8.6 mg/dL (8.5-10.1)
== END | disposition home or self-care (01) ==
LOC: LAB 08:31
PROVIDERS: ATTEND Student in an Organized Health Care Education/Training Program
DX: E11.51 Type 2 diabetes mellitus with diabetic peripheral angiopathy without gangrene (principal); R79.89 Other specified abnormal findings of blood chemistry; E78.5 Hyperlipidemia, unspecified
CPT/HCPCS: 36415; 80053; 80061; 82043; 82274; 83036; 85025

== ENCOUNTER → 2021-12-02 | Outpatient (CLI) | payer OTHER, MEDICAID ==
[2021-12-02 09:09] LABS: Albumin 2.6 g/dL (3.4-5.0); Calcium 8.2 mg/dL (8.5-10.1); Total Protein 5.4 g/dL (6.4-8.2)
== END | disposition home or self-care (01) ==
LOC: LAB 08:03
PROVIDERS: ATTEND Student in an Organized Health Care Education/Training Program
DX: Z01.812 Encounter for preprocedural laboratory examination (principal); R79.89 Other specified abnormal findings of blood chemistry; R14.0 Abdominal distension (gaseous)
CPT/HCPCS: 36415; 80053

== ENCOUNTER 2021-12-14 11:49 | Inpatient (IN) | payer OTHER, MEDICAID ==
[~2021-12-14] VITALS: Ht 175.3 cm; Wt 80.0 kg
[2021-12-14 13:56] LABS: Urine Bacteria FEW /hpf (None Seen); Urine Blood Negative /uL (Negative); Urine Specific Gravity 1.007 (1.001-1.035); Urine WBC 1 /hpf (0 - 3)
[2021-12-14 14:01] LABS: Basophils # (auto) 0.1 10 ^3/uL (0-0.2); Basophils % (auto) 1.9 % (0.0-2.0); Eosinophils # (auto) 0.2 10 ^3/uL (0-0.8); Eosinophils % (auto) 4.2 % (0.0-7.0); Hematocrit 39.3 % (41.0-53.0); Hemoglobin 13.1 g/dL (13.5-17.5); Lymphocytes # (auto) 1.2 10 ^3/uL (0.4-5.4); Lymphocytes % (auto) 24.9 % (10.0-50.0); Mean Corpuscular Hemoglobin 33.6 pg (28.0-32.0); Mean Corpuscular Hgb Conc. 33.2 g/dL (32.0-36.0); Mean Corpuscular Volume 101.3 fL (80.0-100.0); Monocytes # (auto) 0.3 10 ^3/uL (0-1.3); Monocytes % (auto) 6.3 % (0.0-12.0); Neutrophils % (auto) 62.7 % (37.0-80.0); Red Blood Cells 3.88 10^6/uL (4.5-5.90); White Blood Cell 4.8 10^3/uL (4.4-10.8)
[2021-12-14 14:23] LABS: INR 1.14 (0.9-1.15); Partial Thromboplastin Time 33.2 sec (24.6-33.4)
[2021-12-14 14:25] LABS: Potassium 3.6 mmol/L (3.5-5.1)
[2021-12-14 14:33] LABS: Albumin 3.1 g/dL (3.4-5.0); BUN/Creatinine Ratio 11.6; Bilirubin, Total 2.3 mg/dL (0.2-1.0); Calcium 8.3 mg/dL (8.5-10.1)
[2021-12-14] MEDS ORDERED: cefTRIAXone 1GM/50ML D5W 50 ML IV ONE (17:00)
[2021-12-14] MEDS ORDERED: metroNIDAZOLE 500MG/100ML 100 ML IV ONE (17:00)
[2021-12-14 17:54] LABS: Lactic Acid w/Reflex 2.9 mmol/L (0.4-2.0)
[2021-12-14] MEDS ORDERED: DEXTROSE (50%) 50ML SYRG IV PRN (21:30)
[2021-12-14] MEDS ORDERED: ONDANSETRON HCL 4 MG/2 ML VIAL IV PRN (21:30)
[2021-12-14] MEDS: SODIUM CHLORIDE 0.9% 1,000 ML IV SCH (21:38)
[2021-12-14] MEDS ORDERED: PIPERACILLIN-TAZOB 3.375GM 100 ML IV SCH (22:00)
[2021-12-14] MEDS: metroNIDAZOLE 500MG/100ML 100 ML IV SCH (22:27)
[2021-12-14 23:00] VITALS: BP 103/56
[2021-12-14 23:49] VITALS: BP 103/56
[2021-12-15] MEDS: ACCU-CHEK COMFORT CURVE STRIP VI SCH ×5 (00:14→23:25)
[2021-12-15 04:24] LABS: Albumin 2.4 g/dL (3.4-5.0); BUN/Creatinine Ratio 12.2; Calcium 7.8 mg/dL (8.5-10.1); Potassium 3.7 mmol/L (3.5-5.1)
[2021-12-15 04:35] LABS: Bilirubin, Total 1.9 mg/dL (0.2-1.0); Total Protein 4.5 g/dL (6.4-8.2)
[2021-12-15 05:00] VITALS: BP 105/57
[2021-12-15] MEDS: metroNIDAZOLE 500MG/100ML 100 ML IV SCH ×3 (05:26→21:56)
[2021-12-15] MEDS: InsuLIN REG 1unit/0.01ml Soln (100units/ml) SC SCH ×5 (06:00→23:24)
[2021-12-15 07:59] LABS: Basophils # (auto) 0 10 ^3/uL (0-0.2); Basophils % (auto) 1.4 % (0.0-2.0); Eosinophils # (auto) 0.1 10 ^3/uL (0-0.8); Eosinophils % (auto) 3.7 % (0.0-7.0); Hematocrit 32.2 % (41.0-53.0); Hemoglobin 10.7 g/dL (13.5-17.5); Lymphocytes # (auto) 0.6 10 ^3/uL (0.4-5.4); Mean Corpuscular Hemoglobin 33.8 pg (28.0-32.0); Mean Corpuscular Hgb Conc. 33.3 g/dL (32.0-36.0); Mean Corpuscular Volume 101.3 fL (80.0-100.0); Monocytes # (auto) 0.2 10 ^3/uL (0-1.3); Monocytes % (auto) 8.7 % (0.0-12.0); Neutrophils # (auto) 1.7 10 ^3/uL (1.6-8.6); Neutrophils % (auto) 62.2 % (37.0-80.0); Nucleated Red Blood Cells % 0.2 %; Red Blood Cells 3.18 10^6/uL (4.5-5.90); Red Cell Distribution Width 17.6 % (11.8-14.3); White Blood Cell 2.7 10^3/uL (4.4-10.8)
[2021-12-15 09:00] VITALS: BP 112/56
[2021-12-15] MEDS ORDERED: PANTOPRAZOLE 40 MG/10 ML VIAL INJ IV SCH (10:00)
[2021-12-15] MEDS: cefTRIAXone 1GM/50ML D5W 50 ML IV SCH (10:13)
[2021-12-15] MEDS: SODIUM CHLORIDE 0.9% 1,000 ML IV SCH (10:20)
[2021-12-15] MEDS: MORPHINE SULFATE INJ 2 MG/ml SYRG IV PRN ×3 (10:55→23:13)
[2021-12-15] MEDS ORDERED: ALBUTEROL SULF 2.5 MG/0.5ML(0.5%) NEB SOLN NEB PRN (12:00)
[2021-12-15] MEDS: D5W/SOD CHL 0.45%/KCL 20MEQ 1,000 ML IV SCH (12:50)
[2021-12-15 13:00] VITALS: BP 114/58
[2021-12-15] MEDS ORDERED: OMNIPAQUE ORAL SOLN 500ml 12mg/ml PO ONE (13:10)
[2021-12-15] MEDS ORDERED: IOHEXOL 300 MG/ML 100ML BOTTLE IJ ONE (13:10)
[2021-12-15 17:00] VITALS: BP 118/59
[2021-12-15 20:57] LABS: Urine Bacteria NONE SEEN /hpf (None Seen); Urine Blood 3+ /uL (Negative); Urine Specific Gravity 1.045 (1.001-1.035); Urine WBC 5 /hpf (0 - 3)
[2021-12-15 22:00] VITALS: BP 94/49
[2021-12-16] MEDS: D5W/SOD CHL 0.45%/KCL 20MEQ 1,000 ML IV SCH ×4 (01:36→18:18)
[2021-12-16 05:00] VITALS: BP 102/55
[2021-12-16] MEDS: InsuLIN REG 1unit/0.01ml Soln (100units/ml) SC SCH ×3 (06:00→18:00)
[2021-12-16 06:05] LABS: Eosinophils # (auto) 0.2 10 ^3/uL (0-0.8); Eosinophils % (auto) 6.2 % (0.0-7.0); Lymphocytes # (auto) 0.8 10 ^3/uL (0.4-5.4); Monocytes # (auto) 0.2 10 ^3/uL (0-1.3); Neutrophils # (auto) 1.3 10 ^3/uL (1.6-8.6); White Blood Cell 2.5 10^3/uL (4.4-10.8)
[2021-12-16] MEDS: metroNIDAZOLE 500MG/100ML 100 ML IV SCH ×3 (06:07→21:28)
[2021-12-16] MEDS: ACCU-CHEK COMFORT CURVE STRIP VI SCH ×3 (06:08→18:09)
[2021-12-16 06:10] LABS: Basophils # (auto) 0.1 10 ^3/uL (0-0.2); Basophils % (auto) 2.1 % (0.0-2.0); Hematocrit 32.5 % (41.0-53.0); Hemoglobin 10.9 g/dL (13.5-17.5); Lymphocytes % (auto) 31.2 % (10.0-50.0); Mean Corpuscular Hemoglobin 34.1 pg (28.0-32.0); Mean Corpuscular Hgb Conc. 33.7 g/dL (32.0-36.0); Monocytes % (auto) 8.6 % (0.0-12.0); Neutrophils % (auto) 51.9 % (37.0-80.0); Nucleated Red Blood Cells % 0.2 %; Red Blood Cells 3.21 10^6/uL (4.5-5.90); Red Cell Distribution Width 17.7 % (11.8-14.3)
[2021-12-16 06:12] LABS: Mean Corpuscular Volume 101.3 fL (80.0-100.0)
[2021-12-16 06:22] LABS: Albumin 2.2 g/dL (3.4-5.0); Calcium 7.5 mg/dL (8.5-10.1); Potassium 3.7 mmol/L (3.5-5.1)
[2021-12-16 06:27] LABS: BUN/Creatinine Ratio 11.1; Bilirubin, Total 1.4 mg/dL (0.2-1.0); Total Protein 4.4 g/dL (6.4-8.2)
[2021-12-16 08:40] VITALS: BP 100/51
[2021-12-16 08:51] LABS: INR 1.26 (0.9-1.15); Partial Thromboplastin Time 33.1 sec (24.6-33.4)
[2021-12-16] MEDS: cefTRIAXone 1GM/50ML D5W 50 ML IV SCH (10:35)
[2021-12-16 13:00] VITALS: BP_SYST 100; BP_SYST 109; BP_DIAS 51; BP_DIAS 52
[2021-12-16 17:00] VITALS: BP 108/56
[2021-12-16] MEDS ORDERED: traMADol HCL 50 MG TAB PO ONE (18:30)
[2021-12-16] MEDS: MORPHINE SULFATE INJ 2 MG/ml SYRG IV PRN (21:29)
[2021-12-16 22:00] VITALS: BP 107/56
[2021-12-17 05:00] VITALS: BP 104/56
[2021-12-17] MEDS: InsuLIN REG 1unit/0.01ml Soln (100units/ml) SC SCH ×4 (06:00→18:22)
[2021-12-17] MEDS: ACCU-CHEK COMFORT CURVE STRIP VI SCH ×4 (06:38→18:21)
[2021-12-17] MEDS: traMADol HCL 50 MG TAB PO PRN ×2 (06:42→22:02)
[2021-12-17] MEDS: metroNIDAZOLE 500MG/100ML 100 ML IV SCH ×3 (06:43→22:03)
[2021-12-17] MEDS: D5W/SOD CHL 0.45%/KCL 20MEQ 1,000 ML IV SCH ×3 (06:43→22:20)
[2021-12-17 09:00] VITALS: BP 110/60
[2021-12-17] MEDS: cefTRIAXone 1GM/50ML D5W 50 ML IV SCH (10:00)
[2021-12-17] MEDS ORDERED: CIPROFLOXACIN 400MG/200ML 200 ML IV ONE (10:59)
[2021-12-17] MEDS ORDERED: MEPERIDINE HCL (25 MG/ML) 1ML VIAL ONE (11:16)
[2021-12-17] MEDS ORDERED: fentaNYL CITRATE 100 MCG/2 ML VL ONE (11:16)
[2021-12-17] MEDS ORDERED: MIDAZOLAM HCL 2MG/2ML 2ml VIAL (1mg/ml) ONE (11:16)
[2021-12-17] MEDS ORDERED: ONDANSETRON HCL 4 MG/2 ML VIAL ONE (11:29)
[2021-12-17] MEDS ORDERED: PROPOFOL 10 MG/ML 20 ML IV ONE (12:14)
[2021-12-17] MEDS ORDERED: DexAMETHasone SOD PHOS 10MG/1ML VIAL INJ ONE (12:14)
[2021-12-17] MEDS ORDERED: LABETALOL HCL 5 MG/ML 4ML SYRINGE IV PRN (12:15)
[2021-12-17] MEDS ORDERED: ePHEDrine SULFATE 50 MG/ML AMP IV PRN (12:15)
[2021-12-17] MEDS ORDERED: ACCU-CHEK COMFORT CURVE STRIP VI ONE (12:15)
[2021-12-17] MEDS ORDERED: ONDANSETRON HCL 4 MG/2 ML VIAL IV PRN (12:15)
[2021-12-17] MEDS ORDERED: MORPHINE SULFATE 4 MG/ML SYR/VIAL IV PRN (12:15)
[2021-12-17] MEDS ORDERED: MIDAZOLAM HCL 2MG/2ML 2ml VIAL (1mg/ml) IV PRN (12:15)
[2021-12-17] MEDS ORDERED: HYDROmorphone HCL 2 MG/ML VL/or syr IV PRN (12:15)
[2021-12-17 16:37] VITALS: BP 126/60
[2021-12-17 22:00] VITALS: BP 119/72
[2021-12-18] MEDS: ACCU-CHEK COMFORT CURVE STRIP VI SCH ×4 (00:06→18:30)
[2021-12-18 05:00] VITALS: BP 114/58
[2021-12-18] MEDS: InsuLIN REG 1unit/0.01ml Soln (100units/ml) SC SCH ×4 (06:00→18:00)
[2021-12-18] MEDS: metroNIDAZOLE 500MG/100ML 100 ML IV SCH ×2 (06:03→13:43)
[2021-12-18] MEDS: MORPHINE SULFATE INJ 2 MG/ml SYRG IV PRN ×2 (06:04→14:00)
[2021-12-18] MEDS: D5W/SOD CHL 0.45%/KCL 20MEQ 1,000 ML IV SCH ×2 (06:05→15:00)
[2021-12-18 09:00] VITALS: BP 100/53
[2021-12-18 09:16] VITALS: BP 114/58
[2021-12-18] MEDS ORDERED: BELLADONNA ALKAL/OPIUM (16.2/30MG) RECT SUPP PR SCH (10:00)
[2021-12-18] MEDS: cefTRIAXone 1GM/50ML D5W 50 ML IV SCH (11:06)
[2021-12-18] MEDS ORDERED: METR500T PO (11:42)
[2021-12-18] MEDS ORDERED: CIPR500T4 PO (11:42)
[2021-12-18 13:00] VITALS: BP 125/60
[2021-12-18 16:45] VITALS: BP 125/60
[2021-12-18 17:00] VITALS: BP 103/53
== END 2021-12-18 19:59 | disposition home or self-care (01) | DRG 670 ==
LOC: ER 11:49 → OVERFLOW 21:30 → WEST WING 22:56
PROVIDERS: ADMIT Nurse Practitioner; ATTEND Nurse Practitioner Acute Care
PROC: 0TCB8ZZ Extirpation of Matter from Bladder, Via Natural or Artificial Opening Endoscopic (ICD-10-PCS; 2021-12-17)
PROC: 0T7D8ZZ Dilation of Urethra, Via Natural or Artificial Opening Endoscopic (ICD-10-PCS; 2021-12-17)
PROC: 0T9B80Z Drainage of Bladder with Drainage Device, Via Natural or Artificial Opening Endoscopic (ICD-10-PCS; 2021-12-17)
PROC: 0T5B8ZZ Destruction of Bladder, Via Natural or Artificial Opening Endoscopic (ICD-10-PCS; principal; 2021-12-17 11:35)
DX: N35.919 Unspecified urethral stricture, male, unspecified site (principal); K52.9 Noninfective gastroenteritis and colitis, unspecified; D72.819 Decreased white blood cell count, unspecified; R31.0 Gross hematuria; J44.9 Chronic obstructive pulmonary disease, unspecified; K76.9 Liver disease, unspecified; E11.9 Type 2 diabetes mellitus without complications; I50.9 Heart failure, unspecified; E78.5 Hyperlipidemia, unspecified; N40.1 Benign prostatic hyperplasia with lower urinary tract symptoms; R33.8 Other retention of urine; Z20.822 Contact with and (suspected) exposure to COVID-19; Z88.5 Allergy status to narcotic agent; Z88.8 Allergy status to other drugs, medicaments and biological substances; Z90.49 Acquired absence of other specified parts of digestive tract; Z83.3 Family history of diabetes mellitus; Z87.891 Personal history of nicotine dependence; Z82.49 Family history of ischemic heart disease and other diseases of the circulatory system; I25.2 Old myocardial infarction
CPT/HCPCS: 36415; 71045; 74018; 74176; 74177; 76705; 80053; 81001; 82962; 83605; 83880; 84484; 85025; 85610; 85730; 86850; 86900; 86901; 87040; 87086; 87426; 93005; 96365; 96368; C9113; G0378; J0696; J1100; J1815; J2250; J2405; J2704; J3490

== ENCOUNTER 2022-08-09 18:02 | Inpatient (IN) | payer OTHER, MEDICAID ==
[~2022-08-09] VITALS: Ht 172.7 cm; Wt 91.9 kg
[~2022-08-09 18:02] MED LIST changes: +CICL8SOL21 EX; -CICL8SOL3 EX; +CIPR500T4 PO; +FENO160T PO; -FENO160T8 PO; +GABA-1250 PO; -GABA300C10 PO; -ISOS10TA45 PO; +ISOS10TA5 PO; +METR500T PO
[2022-08-09 19:15] LABS: Basophils # (auto) 0 10 ^3/uL (0-0.2); Basophils % (auto) 0.7 % (0.0-2.0); Eosinophils # (auto) 0.1 10 ^3/uL (0-0.8); Hemoglobin 13.9 g/dL (13.5-17.5); Mean Corpuscular Hemoglobin 34.2 pg (28.0-32.0); Monocytes # (auto) 0.3 10 ^3/uL (0-1.3); Neutrophils # (auto) 4.3 10 ^3/uL (1.6-8.6); Red Blood Cells 4.05 10^6/uL (4.5-5.90)
[2022-08-09 19:17] LABS: Eosinophils % (auto) 2.3 % (0.0-7.0); Hematocrit 40.3 % (41.0-53.0); Lymphocytes # (auto) 0.4 10 ^3/uL (0.4-5.4); Lymphocytes % (auto) 6.9 % (10.0-50.0); Mean Corpuscular Hgb Conc. 34.4 g/dL (32.0-36.0); Mean Corpuscular Volume 99.4 fL (80.0-100.0); Monocytes % (auto) 5.2 % (0.0-12.0); Neutrophils % (auto) 84.9 % (37.0-80.0); Nucleated Red Blood Cells % 0.1 %; Red Cell Distribution Width 16.8 % (11.8-14.3); White Blood Cell 5.1 10^3/uL (4.4-10.8)
[2022-08-09 19:35] LABS: Calcium 8.3 mg/dL (8.5-10.1); Potassium 4.1 mmol/L (3.5-5.1)
[2022-08-09 19:42] LABS: Albumin 3.2 g/dL (3.4-5.0); BUN/Creatinine Ratio 9.8 (10.0-20.0); Bilirubin, Total 6.6 mg/dL (0.2-1.0); Total Protein 6.7 g/dL (6.4-8.2)
[2022-08-09] MEDS ORDERED: IOHEXOL 350 MG/ML 100ML IJ ONE (20:32)
[2022-08-09] MEDS ORDERED: DEXTROSE (50%) 50ML SYRG IV PRN (22:45)
[2022-08-09] MEDS ORDERED: metroNIDAZOLE 500MG/100ML 100 ML IV ONE (22:45)
[2022-08-09 23:51] LABS: INR 1.2 (0.9-1.15)
[2022-08-10] MEDS: cefTRIAXone 1GM/50ML D5W 50 ML IV SCH ×2 (01:09→21:29)
[2022-08-10] MEDS: SODIUM CHLORIDE 0.9% 1,000 ML IV SCH ×2 (01:12→12:23)
[2022-08-10] MEDS: ONDANSETRON HCL 4 MG/2 ML VIAL IV PRN ×3 (01:13→12:12)
[2022-08-10] MEDS: MORPHINE SULFATE INJ 2 MG/ml SYRG IV PRN ×3 (02:37→12:13)
[2022-08-10 04:51] LABS: Basophils # (auto) 0 10 ^3/uL (0-0.2); Basophils % (auto) 0.3 % (0.0-2.0); Eosinophils # (auto) 0 10 ^3/uL (0-0.8); Hematocrit 38.2 % (41.0-53.0); Hemoglobin 12.9 g/dL (13.5-17.5); Lymphocytes # (auto) 0.3 10 ^3/uL (0.4-5.4); Lymphocytes % (auto) 3.9 % (10.0-50.0); Mean Corpuscular Hemoglobin 33.7 pg (28.0-32.0); Mean Corpuscular Hgb Conc. 33.9 g/dL (32.0-36.0); Mean Corpuscular Volume 99.5 fL (80.0-100.0); Monocytes # (auto) 0.4 10 ^3/uL (0-1.3); Monocytes % (auto) 5.1 % (0.0-12.0); Neutrophils # (auto) 7.3 10 ^3/uL (1.6-8.6); Neutrophils % (auto) 90.7 % (37.0-80.0); Red Blood Cells 3.84 10^6/uL (4.5-5.90); Red Cell Distribution Width 16.9 % (11.8-14.3)
[2022-08-10 05:07] LABS: Albumin 2.7 g/dL (3.4-5.0); Potassium 4.3 mmol/L (3.5-5.1)
[2022-08-10 05:11] LABS: BUN/Creatinine Ratio 10.3 (10.0-20.0); Bilirubin, Total 8.8 mg/dL (0.2-1.0); Total Protein 6.4 g/dL (6.4-8.2)
[2022-08-10] MEDS: InsuLIN REG 1unit/0.01ml Soln (100units/ml) SC SCH ×4 (06:00→18:00)
[2022-08-10] MEDS: ACCU-CHEK COMFORT CURVE STRIP VI SCH ×4 (06:09→18:03)
[2022-08-10 06:50] LABS: Urine Bacteria NONE SEEN /hpf (None Seen); Urine Blood Negative /uL (Negative); Urine Specific Gravity 1.048 (1.001-1.035); Urine WBC 1 /hpf (0 - 3)
[2022-08-10] MEDS: metroNIDAZOLE 500MG/100ML 100 ML IV SCH ×3 (07:55→22:50)
[2022-08-10] MEDS ORDERED: PANTOPRAZOLE 40 MG/10 ML VIAL INJ IV SCH (10:00)
[2022-08-10] MEDS ORDERED: MORPHINE SULFATE 4 MG/ML SYR/VIAL IV ONE (18:45)
[2022-08-10 22:00] VITALS: BP 99/50
[2022-08-11] MEDS: MORPHINE SULFATE INJ 2 MG/ml SYRG IV PRN ×3 (01:34→21:47)
[2022-08-11 05:00] VITALS: BP 124/60
[2022-08-11] MEDS: ACCU-CHEK COMFORT CURVE STRIP VI SCH ×4 (05:36→18:14)
[2022-08-11] MEDS: InsuLIN REG 1unit/0.01ml Soln (100units/ml) SC SCH ×4 (05:37→18:00)
[2022-08-11] MEDS: metroNIDAZOLE 500MG/100ML 100 ML IV SCH ×3 (05:37→21:07)
[2022-08-11 06:04] LABS: Potassium 4.3 mmol/L (3.5-5.1)
[2022-08-11 06:13] LABS: Albumin 2.5 g/dL (3.4-5.0); BUN/Creatinine Ratio 15.9 (10.0-20.0); Calcium 7.6 mg/dL (8.5-10.1); Total Protein 5.6 g/dL (6.4-8.2)
[2022-08-11] MEDS ORDERED: FENO160T PO (06:17)
[2022-08-11] MEDS ORDERED: TOPI100T68 PO (06:18)
[2022-08-11] MEDS ORDERED: HYDR-3682 PO (06:20)
[2022-08-11 09:18] VITALS: BP 117/55
[2022-08-11 12:56] VITALS: BP 107/40
[2022-08-11 16:45] VITALS: BP 115/51
[2022-08-11 22:00] VITALS: BP 137/74
[2022-08-11] MEDS: CEFEPIME 2 GM in SODIUM CHL 0.9% 50 ML IV SCH (22:27)
[2022-08-12] MEDS: metroNIDAZOLE 500MG/100ML 100 ML IV SCH ×3 (04:59→17:05)
[2022-08-12 05:00] VITALS: BP 139/55
[2022-08-12] MEDS: MORPHINE SULFATE INJ 2 MG/ml SYRG IV PRN ×4 (05:00→17:20)
[2022-08-12] MEDS: InsuLIN REG 1unit/0.01ml Soln (100units/ml) SC SCH ×3 (05:22→12:00)
[2022-08-12] MEDS: ACCU-CHEK COMFORT CURVE STRIP VI SCH ×3 (05:22→12:00)
[2022-08-12 05:42] LABS: Eosinophils # (auto) 0.2 10 ^3/uL (0-0.8); Hemoglobin 12.6 g/dL (13.5-17.5); Monocytes # (auto) 0.3 10 ^3/uL (0-1.3)
[2022-08-12 05:48] LABS: Basophils # (auto) 0 10 ^3/uL (0-0.2); Basophils % (auto) 0.9 % (0.0-2.0); Eosinophils % (auto) 5.2 % (0.0-7.0); Hematocrit 36.9 % (41.0-53.0); Lymphocytes # (auto) 0.7 10 ^3/uL (0.4-5.4); Lymphocytes % (auto) 14.3 % (10.0-50.0); Mean Corpuscular Hemoglobin 34.1 pg (28.0-32.0); Mean Corpuscular Hgb Conc. 34.1 g/dL (32.0-36.0); Mean Corpuscular Volume 100.1 fL (80.0-100.0); Monocytes % (auto) 7.4 % (0.0-12.0); Neutrophils # (auto) 3.3 10 ^3/uL (1.6-8.6); Neutrophils % (auto) 72.2 % (37.0-80.0); Nucleated Red Blood Cells % 0.1 %; Red Blood Cells 3.68 10^6/uL (4.5-5.90); White Blood Cell 4.6 10^3/uL (4.4-10.8)
[2022-08-12 06:00] LABS: Albumin 2.3 g/dL (3.4-5.0); Calcium 7.8 mg/dL (8.5-10.1); Potassium 4.6 mmol/L (3.5-5.1)
[2022-08-12 06:05] LABS: Bilirubin, Direct 6.6 mg/dL (0-0.2); Bilirubin, Total 8.8 mg/dL (0.2-1.0); Total Protein 5.6 g/dL (6.4-8.2)
[2022-08-12] MEDS: CEFEPIME 2 GM in SODIUM CHL 0.9% 50 ML IV SCH ×2 (06:34→14:00)
[2022-08-12 09:03] VITALS: BP 128/55
[2022-08-12 13:00] VITALS: BP 119/55
[2022-08-12 17:00] VITALS: BP 130/65
== END 2022-08-12 17:00 | disposition short-term general hospital (02) | DRG 446 ==
LOC: EDBD 18:02 → ER 18:07 → OVERFLOW 22:50 → WEST WING 08-10 21:06
PROVIDERS: ADMIT Nurse Practitioner; ATTEND Internal Medicine
DX: K83.09 Other cholangitis (principal); E11.9 Type 2 diabetes mellitus without complications; I11.0 Hypertensive heart disease with heart failure; E78.5 Hyperlipidemia, unspecified; I25.10 Atherosclerotic heart disease of native coronary artery without angina pectoris; I50.9 Heart failure, unspecified; F41.9 Anxiety disorder, unspecified; R19.7 Diarrhea, unspecified; R74.01 Elevation of levels of liver transaminase levels; K46.9 Unspecified abdominal hernia without obstruction or gangrene; J44.9 Chronic obstructive pulmonary disease, unspecified; Z82.49 Family history of ischemic heart disease and other diseases of the circulatory system; Z83.3 Family history of diabetes mellitus; Z87.891 Personal history of nicotine dependence; Z88.1 Allergy status to other antibiotic agents; Z88.5 Allergy status to narcotic agent; I25.2 Old myocardial infarction; Z90.49 Acquired absence of other specified parts of digestive tract
CPT/HCPCS: 36415; 74177; 74181; 80053; 81001; 82248; 82962; 83036; 83690; 83880; 84484; 85025; 85610; 85730; 93005; 96365; 96375; C9113; G0378; J0696; J2405; J3490

== ENCOUNTER 2022-08-31 19:18 | Inpatient (IN) | payer OTHER, MEDICAID ==
[~2022-08-31] VITALS: Ht 170.2 cm; Wt 104.8 kg
[~2022-08-31 19:18] MED LIST changes: -ASPI-498 OR; -ATOR80TA PO; -CHOL20007 PO; -CIPR500T4 PO; -MAGN400T40 PO; -METF-370 PO; -METR500T PO; -NAP500T PO
[2022-08-31 20:39] LABS: Calcium 6.6 mg/dL (8.5-10.1); Potassium 4.5 mmol/L (3.5-5.1)
[2022-08-31 20:42] LABS: BUN/Creatinine Ratio 28.8 (10.0-20.0); Bilirubin, Total 14.2 mg/dL (0.2-1.0); Total Protein 3.5 g/dL (6.4-8.2)
[2022-08-31 20:57] LABS: INR 2.5 (0.9-1.15)
[2022-08-31] MEDS ORDERED: PANTOPRAZOLE 40 MG/10 ML VIAL INJ IV ONE (21:00)
[2022-08-31] MEDS ORDERED: MORPHINE SULFATE INJ 2 MG/ml SYRG IV ONE (21:00)
[2022-08-31] MEDS ORDERED: ONDANSETRON HCL 4 MG/2 ML VIAL IV ONE (21:00)
[2022-08-31 21:12] LABS: Basophils # (auto) 0 10 ^3/uL (0-0.2); Eosinophils # (auto) 0.1 10 ^3/uL (0-0.8); Lymphocytes # (auto) 2.2 10 ^3/uL (0.4-5.4); Mean Corpuscular Hemoglobin 34.3 pg (28.0-32.0); Monocytes # (auto) 1.5 10 ^3/uL (0-1.3); Monocytes % (auto) 9.1 % (0.0-12.0); Nucleated Red Blood Cells % 0.4 %; Red Blood Cells 1.99 10^6/uL (4.5-5.90)
[2022-08-31 21:14] LABS: Basophils % (auto) 0.1 % (0.0-2.0); Eosinophils % (auto) 0.5 % (0.0-7.0); Hematocrit 20.2 % (41.0-53.0); Lymphocytes % (auto) 13.3 % (10.0-50.0); Mean Corpuscular Hgb Conc. 33.8 g/dL (32.0-36.0); Mean Corpuscular Volume 101.4 fL (80.0-100.0); Neutrophils # (auto) 12.8 10 ^3/uL (1.6-8.6); White Blood Cell 16.7 10^3/uL (4.4-10.8)
[2022-08-31 21:20] LABS: Red Cell Distribution Width 20.4 % (11.8-14.3)
[2022-08-31 21:24] LABS: Hemoglobin 6.8 g/dL (13.5-17.5); Partial Thromboplastin Time 112.7 SEC (24.5-34.5)
[2022-08-31] MEDS: NOREPINEPHRINE 8 MG/250ML KIT 250 ML IV SCH (21:31)
[2022-08-31] MEDS ORDERED: ONDANSETRON HCL 4 MG/2 ML VIAL IV PRN (21:45)
[2022-08-31] MEDS ORDERED: NITROGLYCERIN 0.4 MG SL TAB SL PRN (21:45)
[2022-08-31] MEDS ORDERED: MORPHINE SULFATE INJ 2 MG/ml SYRG IV PRN (21:45)
[2022-08-31] MEDS ORDERED: ACETAMINOPHEN 325 MG TAB PO PRN (21:45)
[2022-08-31] MEDS ORDERED: SODIUM CHLORIDE 0.9% 2,000 ML IV ONE (21:45)
[2022-08-31 21:59] LABS: Lactic Acid w/Reflex 8.2 mmol/L (0.4-2.0)
[2022-08-31] MEDS ORDERED: AZITHROMYCIN 500MG/ 250ML 250 ML IV ONE (22:00)
[2022-08-31 23:05] VITALS: BP 94/33
[2022-08-31 23:20] VITALS: BP 92/32
[2022-08-31] MEDS: SODIUM CHLORIDE 0.9% 1,000 ML IV SCH (23:41)
[2022-09-01] VITALS (32 sets, daily range): BP systolic 92–124; BP diastolic 31–58
[2022-09-01] MEDS: traMADol HCL 50 MG TAB PO PRN ×3 (00:17→17:58)
[2022-09-01] MEDS: PIPERACILLIN-TAZOB 3.375GM 100 ML IV SCH ×4 (00:20→23:29)
[2022-09-01 00:59] LABS: Urine Bacteria FEW /hpf (None Seen); Urine Blood 1+ /uL (Negative); Urine Mucus FEW (None Seen); Urine Specific Gravity 1.016 (1.001-1.035); Urine WBC 7 /hpf (0 - 3)
[2022-09-01] MEDS: NOREPINEPHRINE 8 MG/250ML KIT 250 ML IV SCH ×3 (04:20→20:00)
[2022-09-01 05:08] LABS: Hematocrit 29.3 % (41.0-53.0); Hemoglobin 9.8 g/dL (13.5-17.5); Mean Corpuscular Hemoglobin 32.6 pg (28.0-32.0); Mean Corpuscular Hgb Conc. 33.4 g/dL (32.0-36.0); Mean Corpuscular Volume 97.6 fL (80.0-100.0); Red Cell Distribution Width 19.5 % (11.8-14.3); White Blood Cell 26.8 10^3/uL (4.4-10.8)
[2022-09-01 05:19] LABS: Potassium 4.4 mmol/L (3.5-5.1)
[2022-09-01 05:28] LABS: BUN/Creatinine Ratio 30.9 (10.0-20.0); Bilirubin, Total 14.4 mg/dL (0.2-1.0); Calcium 6.1 mg/dL (8.5-10.1); Total Protein 3.6 g/dL (6.4-8.2)
[2022-09-01 05:29] LABS: Basophils % (manual) 0 (0.0-2.0); Blast Cells 0; Eosinophils % (manual) 0 (0-7); Metamyelocytes % 0; Myelocytes % 0; Promyelocytes % 0; Reactive Lymphocytes 0
[2022-09-01 08:04] LABS: Band Neutrophils % (manual) 2; Lymphocytes % (manual) 13 (10.0-50.0); Monocytes % (manual) 6 (0-12)
[2022-09-01] MEDS: PANTOPRAZOLE 40 MG TAB PO SCH (10:22)
[2022-09-01] MEDS: AZITHROMYCIN 500MG/ 250ML 250 ML IV SCH (10:32)
[2022-09-01] MEDS: SODIUM CHLORIDE 0.9% 1,000 ML IV SCH (10:33)
[2022-09-01] MEDS ORDERED: HYDROmorphone HCL 2 MG/ML VL/or syr IV PRN (13:00)
[2022-09-01] MEDS: SODIUM BICARBONATE 50ML VIAL 75 ML in D5W 5% 1,000 ML IV SCH (14:00)
[2022-09-01] MEDS ORDERED: HALOPERIDOL LACTATE 5 MG/ML INJ VIAL IM PRN (19:00)
[2022-09-01 23:09] LABS: Urine Amorphous Crystal FEW /hpf (None Seen); Urine Bacteria NONE SEEN /hpf (None Seen); Urine Blood 3+ /uL (Negative); Urine Mucus FEW (None Seen); Urine WBC 120 /hpf (0 - 3)
[2022-09-02] VITALS (57 sets, daily range): BP systolic 69–126; BP diastolic 11–88
[2022-09-02] MEDS: NOREPINEPHRINE 8 MG/250ML KIT 250 ML IV SCH ×3 (02:31→12:34)
[2022-09-02 04:43] LABS: Hematocrit 24.6 % (41.0-53.0); Red Blood Cells 2.47 10^6/uL (4.5-5.90)
[2022-09-02 04:45] LABS: Mean Corpuscular Hemoglobin 32.3 pg (28.0-32.0); Mean Corpuscular Hgb Conc. 32.5 g/dL (32.0-36.0); Mean Corpuscular Volume 99.4 fL (80.0-100.0); Red Cell Distribution Width 19.8 % (11.8-14.3)
[2022-09-02] MEDS: PIPERACILLIN-TAZOB 3.375GM 100 ML IV SCH ×2 (04:48→14:51)
[2022-09-02 05:03] LABS: BUN/Creatinine Ratio 27.3 (10.0-20.0); Calcium 6.2 mg/dL (8.5-10.1); Potassium 4.2 mmol/L (3.5-5.1)
[2022-09-02 05:06] LABS: Bilirubin, Total 12.8 mg/dL (0.2-1.0); Total Protein 3.1 g/dL (6.4-8.2)
[2022-09-02 05:10] LABS: INR 3.57 (0.9-1.15)
[2022-09-02 05:13] LABS: Albumin 0.9 g/dL (3.4-5.0); White Blood Cell 37.7 10^3/uL (4.4-10.8)
[2022-09-02 05:14] LABS: Basophils % (manual) 0 (0.0-2.0); Blast Cells 0; Eosinophils % (manual) 0 (0-7); Promyelocytes % 0; Reactive Lymphocytes 0
[2022-09-02 05:25] LABS: Partial Thromboplastin Time > 139.0 SEC (24.5-34.5)
[2022-09-02] MEDS ORDERED: VASOPRESSIN 20 UNITS in SODIUM CHL 0.9% 99 ML IV SCH (08:15)
[2022-09-02 08:35] LABS: Band Neutrophils % (manual) 2; Lymphocytes % (manual) 4 (10.0-50.0); Metamyelocytes % 1; Monocytes % (manual) 10 (0-12); Myelocytes % 1
[2022-09-02] MEDS: SODIUM BICARBONATE 50ML VIAL 75 ML in D5W 5% 1,000 ML IV SCH (08:52)
[2022-09-02] MEDS ORDERED: MIDAZOLAM DRIP 50 mg/50mL 50 ML IV ONE (09:44)
[2022-09-02] MEDS ORDERED: MIDAZOLAM DRIP 50 mg/50mL 50 ML IV SCH ×2 (09:45→10:00)
[2022-09-02] MEDS ORDERED: fentaNYL Drip 2500mCg/250mlNS 250 ML IV SCH (09:45)
[2022-09-02] MEDS ORDERED: PROPOFOL 100 ML IV SCH (09:45)
[2022-09-02] MEDS ORDERED: SUCCINYLCHOLINE CHLORIDE 20 MG/ML 10ML VIAL IV ONE ×2 (09:45→09:47)
[2022-09-02] MEDS ORDERED: PROPOFOL 100 ML IV ONE (09:45)
[2022-09-02] MEDS ORDERED: ETOMIDATE (2MG/ML) 20ML VIAL IV ONE ×2 (09:46→09:49)
[2022-09-02] MEDS ORDERED: EPINEPHrine HCL 250 ML IV ONE (09:51)
[2022-09-02] MEDS ORDERED: PHENYLEPHRINE IV 250 ML IV ONE (09:51)
[2022-09-02] MEDS: PANTOPRAZOLE 40 MG TAB PO SCH (10:00)
[2022-09-02] MEDS: PHENYLEPHRINE IV 250 ML IV SCH ×4 (10:18→15:44)
[2022-09-02] MEDS: EPINEPHrine HCL 250 ML IV SCH ×2 (10:38→15:45)
[2022-09-02] MEDS ORDERED: ALBUMIN 25% 100 ML IV SCH (10:45)
[2022-09-02] MEDS ORDERED: ALBUMIN 25% 100 ML IV ONE (10:48)
[2022-09-02] MEDS ORDERED: SODIUM BICARBONATE 8.4 % INJ 50ML VIAL IV ONE ×2 (11:15→11:24)
[2022-09-02] MEDS ORDERED: ALBUMIN 25% 0 ML IV ONE (11:24)
[2022-09-02] MEDS: AZITHROMYCIN 500MG/ 250ML 250 ML IV SCH (11:49)
[2022-09-02] MEDS: ALBUMIN 25% 100 ML IV SCH ×2 (14:10→14:52)
[2022-09-02 14:44] LABS: Creatinine, Urine 98 mg/dL (30.0-125.0); Sodium Urine < 5 mmol/L (40-220)
== END 2022-09-02 20:55 | DRG 871 ==
LOC: ER 19:18 → EDBD 19:18 → TELE 21:45 → ICU CENTRL 09-01 22:15
PROVIDERS: ADMIT Nurse Practitioner; ATTEND Internal Medicine
PROC: 30233N1 Transfusion of Nonautologous Red Blood Cells into Peripheral Vein, Percutaneous Approach (ICD-10-PCS; principal; 2022-09-01)
PROC: 30233P1 Transfusion of Nonautologous Frozen Red Cells into Peripheral Vein, Percutaneous Approach (ICD-10-PCS; 2022-09-01)
DX: A41.9 Sepsis, unspecified organism (principal); E43 Unspecified severe protein-calorie malnutrition; N17.0 Acute kidney failure with tubular necrosis; R65.21 Severe sepsis with septic shock; K80.31 Calculus of bile duct with cholangitis, unspecified, with obstruction; I25.110 Atherosclerotic heart disease of native coronary artery with unstable angina pectoris; E11.9 Type 2 diabetes mellitus without complications; D64.9 Anemia, unspecified; E78.5 Hyperlipidemia, unspecified; I11.0 Hypertensive heart disease with heart failure; Z66 Do not resuscitate; F41.9 Anxiety disorder, unspecified; K80.20 Calculus of gallbladder without cholecystitis without obstruction; I25.10 Atherosclerotic heart disease of native coronary artery without angina pectoris; I50.9 Heart failure, unspecified; J44.9 Chronic obstructive pulmonary disease, unspecified; K76.9 Liver disease, unspecified; Z87.891 Personal history of nicotine dependence; Z68.36 Body mass index [BMI] 36.0-36.9, adult; Z79.899 Other long term (current) drug therapy
CPT/HCPCS: 36415; 36556; 36600; 70450; 71045; 74176; 80053; 81001; 82140; 82570; 82805; 83605; 83735; 83935; 84300; 85007; 85025; 85027; 85610; 85730; 86850; 86900; 86901; 86920; 87040; 87081; 93005; 94660; 99291; C9113; G0378; J0171; J0330; J2250; J2405; J2543; J2704; P9047